=== PATIENT | male | born 1980 | race Caucasian/White ===

== ENCOUNTER 2017-09-09 16:57 | Inpatient (IN) | payer MEDICAID ==
[2017-09-09] MEDS ORDERED: NS 0.9% 1000 ML* 1,000 ML IV ONE (19:53)
[2017-09-09] MEDS ORDERED: Zosyn per Pharmacy* NOTE FOLLOW UP SCH (20:00)
[2017-09-09] MEDS ORDERED: Vancomycin per Pharmacy* NOTE FOLLOW UP PRN (20:20)
[2017-09-09] MEDS ORDERED: Piperacillin/Tazobac ADVAN(*) 3.375 GM in NS 0.9% 100 ML* 100 ML IVPB ONE (20:30)
--- NOTE | 2017-09-09 20:53 | RAD ---
INDICATION: Right ankle infection COMPARISON: None. TECHNIQUE: 3 views of the right ankle and 2 views of the right lower leg were obtained. FINDINGS: There is induration of the subcutaneous tissue overlying the lower leg. Along the posterior aspect of the distal right lower leg there is a 1 cm low-density defect possibly representing a wound. The bones are normal alignment. Joint spaces appear maintained. No fracture is seen. IMPRESSION: SOFT TISSUE FINDINGS DESCRIBED ABOVE. THE UNDERLYING BONES ARE NORMAL. If the patient's symptoms persist, follow-up imaging is recommended.
[2017-09-09] MEDS ORDERED: Vancomycin(*) 1,000 MG in NS 0.9% 250 ML* 250 ML IVPB ONE (21:00)
--- NOTE | 2017-09-09 22:21 | CONS ---
CONSULTATION REPORT: DATE OF CONSULT: 09/09/17 CHIEF COMPLAINT: Right lower leg infection and wound. HISTORY OF PRESENT ILLNESS: Too is 37. He uses IV heroin and methamphetamines. He has a history of multiple abscesses secondary to his IV drug use. He will frequently drain the abscesses himself, do soaks and start antibiotics and these resolve. He had a similar type abscess on the medial aspect of his right lower leg. He did this. Unfortunately, it has gotten into a very large necrotic wound just medial to his Achilles tendon. He today finally decided it was becoming too much for him and he went to [facility] Emergency Room and was transferred over to our hospital for orthopedic care. He denies fevers, chills, or systemic symptoms. He has been taking some Bactrim that he had left over from a prior neck abscess. PAST MEDICAL HISTORY: Significant for IV drug use, multiple infections requiring antibiotics and drainage. PAST SURGICAL HISTORY: Multiple I and D's. MEDICATIONS: He denies any home medications. He recently completed taking some Bactrim that he had left over from a prior infection. ALLERGIES: PENICILLIN. FAMILY HISTORY: Noncontributory. SOCIAL HISTORY: Drug use as mentioned above. Otherwise, he lives independently. REVIEW OF SYSTEMS: A full review of systems was conducted and is negative except for that mentioned above. This included 14 systems. PHYSICAL EXAM: Awake and alert. Cardiac: Regular. Lungs: Clear. Skin: There is a large necrotic wound on the posteromedial aspect of the right lower leg and medial to the Achilles tendon. Musculoskeletal: He is able to flex and extend the ankle and toes. Foot is warm and well perfused. There is a large necrotic wound with some drainage on that posteromedial lower leg. IMAGING: X-rays of the right ankle and lower leg were ordered and reviewed by me. There are some soft tissue abnormalities in the area of the infection, but otherwise no bony abnormalities were seen. IMPRESSION: Right lower leg wound secondary to abscess due to IV drug use the he lanced himself and has now gone on to a large necrotic wound. There is still some infection. PLAN: This is going to require debridement and likely flap coverage. Integra may be an option. He understands this. We talked about risks and benefits. He understands he is going to need to see another surgeon who performs soft tissue coverage procedures. We will plan to do an irrigation and debridement tomorrow and wound VAC coverage. [id number]/[facility] #: [id number] [place]
--- NOTE | 2017-09-09 23:03 | PN ---
Hospitalist Progress Note Date of Service: 09/09/17 CENTRAL LINE NOTE HOSPITALIST PROCEDURE NOTE: CENTRAL LINE Indication present for central line: multiple failed peripheral line attempts / no PICC service / need for multiple IV agents, phlebotomy Discussed with patient, who agreed and consented based on risks & benefits explained. Labs reviewed (no coagulopathy noted). Materials collected and room set up Patient positioned and target site sterilized in the usual fashion with shoulders back and head down (reverse Trendelenburg position) I note patient EXQUISITELY sensitive and copious extra lidocaine used to no great effect. Completed physician-led time out reviewing patient name, procedure, indications , laterality, goals, etc. Site anesthetized with 1% lidocaine in usual fashion Larger finder needle delivered deeper lidocaine but did not get drawback (flash ) from L subclavian vein (characteristic deep red / venous color noted) Position aborted and Stat CXR ordered to r/o pneumothorax and confirm proper line placement. No complications noted at the time of this note.
--- NOTE | 2017-09-10 01:22 | HP ---
CC: Gagan Smart MD * HISTORY AND PHYSICAL: DATE OF ADMISSION: 09/09/17 TIME OF EVALUATION: 8 p.m. PRIMARY CARE PROVIDER: Gagan Smart MD, family practice in [facility]. CHIEF COMPLAINT: Transferred from [facility] ER for left leg abscess. HISTORY OF PRESENT ILLNESS: Mr. Nixon is a 37-year-old man with a medical history primarily significant for IV injection drug use primarily heroin and methamphetamines. He has a history of skin infections secondary to his injection. He self-treats abscesses and even does self incision and drainages. The patient was injecting heroin and methamphetamine into the posterior aspect of his right lower leg right below his calf muscle. The patient was noticing the wound became very large and necrotic just above his Achilles tendon and the patient went to [place] Emergency Room and he was transferred for orthopedic care to [facility] and the patient does not have systemic symptoms. The patient does have very poor IV access although they were able to get transient access and accomplish an injection of ceftriaxone and clindamycin. He has stated PENICILLIN allergy, although he does not know of any history of PENICILLIN reaction and thinks that might be artifactual. The patient was seen by Dr. Elfego Pedraza of Orthopedic Surgery already and Dr. Pedraza feels he needs debridement and likely a wound VAC, but will ultimately need a flap for full healing. This would require a plastic surgery. The plan at this point is for an irrigation and debridement and wound VAC coverage and then to be transferred for a flap procedure. PAST MEDICAL HISTORY: 1. IV drug use. 2. Multiple infections related to the IV drug use and multiple skin infections with incision and drainages. OUTPATIENT MEDICATIONS: None. ALLERGIES: PENICILLIN - unknown reaction. FAMILY HISTORY: Unremarkable. SOCIAL HISTORY: The patient is unemployed. He lives independently. He drinks alcohol, but never in excess. His surrogate decision maker is his mother and her information is on file. The patient is a full code. REVIEW OF SYSTEMS: A review of systems was done along 14 points. This was largely negative except for the pertinent positives as mentioned above in the HPI and past medical history. PHYSICAL EXAMINATION GENERAL APPEARANCE: Young-appearing man, appears stated age, in no apparent distress. VITAL SIGNS: Temperature 98.6 Fahrenheit, pulse 80, respirations 12 and regular , oxygen saturation 99% on room air, blood pressure 100/70. HEENT: Oropharynx clear. Mucous membranes are moist. LUNGS: Clear anteriorly and posterior. No increased work of breathing appreciated. HEART: No murmurs appreciated. ABDOMEN: Soft, nontender. NEUROLOGIC: Nontender. Moves all extremities equally. Normal sensory and motor function. SKIN: Dry and intact. He has got multiple tattoos. He has multiple areas of injection, scarring, and very poor vascular access. At the posterior aspect of his right leg, he has got a large foul smelling, necrotic wound several centimeters in diameter with obvious tendon exposed and purulence. PSYCHIATRY: Normal affect, no acute anxiety or depression. ADMISSION DATA: From [place], he did not have an elevated white blood cell count. He had no chemistries to review. IMAGING: X-rays of the right ankle and lower leg were ordered and only shows soft tissue abnormalities but no bony involvement to suggest osteomyelitis. Blood cultures were ordered, but I am not sure they have been collected and the patient is in extremely hard phlebotomy stick. IMPRESSION: Mr. Nixon is a 37-year-old gentleman with intravenous drug use specifically heroin and methamphetamine, now with a soft tissue infection that is necrosed to include lower levels of fat and muscle, but no bony involvement at this point. He needs surgical debridement and wound VAC placement and ultimately a flap procedure. I have requested vancomycin and piperacillin for a broader coverage. I think the PENICILLIN allergy is artifactual and likely unimportant. The patient will also benefit from IV fluids if we can obtain access. I have made separate for subclavian access and this failed secondary to the patient's extreme uncooperativeness with the procedure and the risk and benefit was not in favor of proceeding any more aggressively. Further decisions will be based on his clinical progress. TIME SPENT: Total time taken to admit Mr. Nixon was 50 minutes, greater than half the time was spent going over the history and physical. [id number]/[facility] #: [id number] [facility]
[2017-09-10 06:31] LABS: EGFR Non-African American 132.7 (>60)
[2017-09-10 06:32] LABS: Hematocrit 35 % (42-52); Hemoglobin 11.8 g/dl (14.0-18.0); Mean Corpuscular HGB Conc 33 g/dl (31-36); Mean Corpuscular Hemoglobin 28 pg (27-31); Mean Corpuscular Volume 84 fL (80-94); Red Blood Count 4.19 10^6/ul (4.0-5.4); Red Cell Distribution Width 15 % (10.5-15)
[2017-09-10 06:59] LABS: White Blood Count 8.7 10^3/ul (3.5-10.8)
[2017-09-10 07:03] LABS: ABS Lymphocytes 2.1 10^3/ul (1.0-4.8); ABS Neutrophils 5.2 10^3/ul (1.5-7.7); Monocytes % 13 % (0-13)
[2017-09-10 07:04] LABS: ABS Basophils 0.1 10^3/ul (0-0.2); ABS Eosinophils 0.2 10^3/ul (0-0.6); ABS Monocytes 1.1 10^3/ul (0-0.8); ABS Nucleated RBC 0 10^3/ul
--- NOTE | 2017-09-10 07:26 | PN ---
Progress Note - Progress Note Date of Service: 09/10/17 SOAP: Subjective: patient resting comfortably with no complaints of pain Objective: Vital Signs Temp Pulse Resp BP Pulse Ox 97.7 F 87 16 118/59 97 09/10/17 03:27 09/10/17 03:27 09/10/17 03:27 09/10/17 03:27 09/10/17 03:27 Laboratory Last Values WBC 8.7 10^3/ul (3.5-10.8) 09/10/17 05:29 RBC 4.19 10^6/ul (4.0-5.4) 09/10/17 05:29 Hgb 11.8 g/dl (14.0-18.0) L 09/10/17 05:29 Hct 35 % (42-52) L 09/10/17 05:29 MCV 84 fL (80-94) 09/10/17 05:29 MCH 28 pg (27-31) 09/10/17 05:29 MCHC 33 g/dl (31-36) 09/10/17 05:29 RDW 15 % (10.5-15) 09/10/17 05:29 Plt Count TNP 09/10/17 05:29 Absolute Neuts (auto) 5.2 10^3/ul (1.5-7.7) 09/10/17 05:29 Absolute Lymphs (auto) 2.1 10^3/ul (1.0-4.8) 09/10/17 05:29 Absolute Monos (auto) 1.1 10^3/ul (0-0.8) H 09/10/17 05:29 Absolute Eos (auto) 0.2 10^3/ul (0-0.6) 09/10/17 05:29 Absolute Basos (auto) 0.1 10^3/ul (0-0.2) 09/10/17 05:29 Absolute Nucleated RBC 0 10^3/ul 09/10/17 05:29 Neutrophils % 60 % (38-83) 09/10/17 05:29 Lymphocytes % 23 % (25-47) L 09/10/17 05:29 Reactive Lymphs % 1 % (0-6) 09/10/17 05:29 Monocytes % 13 % (0-13) 09/10/17 05:29 Eosinophils % 2 % (0-6) 09/10/17 05:29 Basophils % 1 % (0-2) 09/10/17 05:29 Normal RBC Morphology Normal (Normal) 09/10/17 05:29 Sodium 135 mmol/L (133-145) 09/10/17 05:29 Potassium 4.4 mmol/L (3.5-5.0) 09/10/17 05:29 Chloride 101 mmol/L (101-111) 09/10/17 05:29 Carbon Dioxide 27 mmol/L (22-32) 09/10/17 05:29 Anion Gap 7 mmol/L (2-11) 09/10/17 05:29 BUN 13 mg/dL (6-24) 09/10/17 05:29 Creatinine 0.68 mg/dL (0.67-1.17) 09/10/17 05:29 Est GFR ( Amer) 170.7 (>60) 09/10/17 05:29 Est GFR (Non-Af Amer) 132.7 (>60) 09/10/17 05:29 BUN/Creatinine Ratio 19.1 (8-20) 09/10/17 05:29 Glucose 93 mg/dL (70-100) 09/10/17 05:29 Calcium 9.0 mg/dL (8.6-10.3) 09/10/17 05:29 PE: 2+DP pulses, intact sensation over toes, able to moves toes, full ROM right ankle, 5/5 LE strengths wound: dressing intact and clean Assessment: 37 yo male with RLE wound and infection Plan: 1) NPO 2) OR this am for I&D with wound vac placement 3) will need to be transferred to facility for skin flap procedure for wound coverage once stable
--- NOTE | 2017-09-10 09:28 | RAD ---
INDICATION: Status post left subclavian catheter placement attempt COMPARISON: None. TECHNIQUE: Single AP portable view of the chest was obtained. FINDINGS: Image quality is compromised due to the relative inferiority of a portable chest x-ray. The heart and mediastinum exhibit normal size and contour. The lungs are grossly clear. There is no pneumothorax. Visualized bones are normal for the patient's age. IMPRESSION: No pneumothorax. Normal portable AP chest x-ray.
[2017-09-10] MEDS ORDERED: Buffered Lidocaine 0.9% SYRIN* 5 ML/SYR SYRINGE ONE (09:55)
[2017-09-10] MEDS ORDERED: Midazolam* 1 MG/ML 2 ML VIAL (2 MG) ONE (11:32)
[2017-09-10] MEDS ORDERED: Propofol* 10 MG/ML 20 ML BTL IV PUSH ONE (12:19)
[2017-09-10] MEDS ORDERED: Ketorolac INJ* 30 MG/ML 1 ML VIAL ONE (12:19)
[2017-09-10] MEDS ORDERED: Dexamethasone IV* 4 MG/ML 1 ML (4 MG) ONE (12:19)
[2017-09-10] MEDS ORDERED: Ondansetron INJ* 2 MG/ML VIAL ONE (12:39)
[2017-09-10] MEDS ORDERED: Acetaminophen IV 1GM/100ML * 1,000 MG/100 ML VIAL IVPB ONE (12:53)
[2017-09-10] MEDS ORDERED: Acetaminophen IV 1GM/100ML * 100 ML ONE (13:05)
[2017-09-10] MEDS ORDERED: HYDROmorphone INJ* 1 MG/ML CARPUJECT SYRINGE IV PRN (13:16)
[2017-09-10] MEDS ORDERED: HYDROmorphone INJ* 1 MG/ML CARPUJECT SYRINGE ONE (13:18)
[2017-09-10] MEDS ORDERED: Vancomycin(*) 1,000 MG in NS 0.9% 250 ML* 250 ML IVPB ONE (14:00)
[2017-09-10] MEDS ORDERED: ZOSYN 3.375 GM Q8H per EXTENDED INFUSION IVPB SCH ×2 (16:30)
--- NOTE | 2017-09-10 17:15 | PN ---
Subjective Date of Service: 09/10/17 Interval History: Patient seen and examined at bedside. Denies fever, chills, shortness of breath , chest discomfort, N/V/D. Pain is controlled. Family History: Unchanged from Admission Social History: Unchanged from Admission Past Medical History: Unchanged from Admission Objective Active Medications: Acetaminophen (Tylenol Tab*) 650 mg PO Q4H PRN Reason: FEVER/PAIN Heparin Sodium (Porcine) (Heparin Flush Picc/Ml/Cvc(*)) 1 - 3 ml FLUSH 0600, 1800 [facility] Piperacillin Sod/Tazobactam (Sod 3.375 gm/ Sodium Chloride) 100 mls @ 25 mls/ hr IVPB Q8H [facility] Pharmacy Consult (Zosyn Per Pharmacy*) 1 note FOLLOW UP .ZOSYN PER PHARMACY [facility] Pharmacy Consult (Vancomycin Per Pharmacy*) 1 note FOLLOW UP . PRN Vital Signs - 8 hr 09/10/17 09/10/17 09/10/17 13:01 13:05 13:10 Temperature 97.0 F Pulse Rate 91 77 70 Respiratory 16 18 16 Rate Blood Pressure 131/91 149/99 129/92 (mmHg) O2 Sat by Pulse 100 100 100 Oximetry 09/10/17 09/10/17 09/10/17 13:15 13:19 13:20 Temperature Pulse Rate 67 62 Respiratory 16 18 16 Rate Blood Pressure 128/83 128/81 (mmHg) O2 Sat by Pulse 100 100 Oximetry 09/10/17 09/10/17 09/10/17 13:30 14:13 14:20 Temperature 97.4 F 97.4 F Pulse Rate 61 52 52 Respiratory 16 18 18 Rate Blood Pressure 130/91 118/69 118/69 (mmHg) O2 Sat by Pulse 100 100 100 Oximetry 09/10/17 15:33 Temperature 97.8 F Pulse Rate 56 Respiratory 18 Rate Blood Pressure 109/61 (mmHg) O2 Sat by Pulse 99 Oximetry Oxygen Devices in Use Now: None Appearance: NAD, laying in bed Ears/Nose/Mouth/Throat: Mucous Membranes Moist Respiratory: Symmetrical Chest Expansion and Respiratory Effort, Clear to Auscultation Cardiovascular: NL Sounds; No Murmurs; No JVD, RRR Abdominal: NL Sounds; No Tenderness; No Distention Skin: - - Wound vac in place to right LE Neurological: Alert and Oriented x 3, NL Muscle Strength and Tone Lines/Tubes/Other Access: Clean, Dry and Intact PICC Line - site benign Nutrition: Taking PO's Result Diagrams: 09/10/17 05:29 09/10/17 05:29 Microbiology and Other Data: Microbiology 09/10/17 12:19 Skin and Soft Tissue MRSA/MSSA (PCR - Final Wound - Right Leg Mrsa Negative S.aureus Negative 09/10/17 12:19 Wound Gram Stain - Final Tissue - Right Leg Skin and Soft Tissue MRSA/MSSA (PCR - Final Mrsa Negative S.aureus Negative 09/10/17 12:19 Gram Stain - Final Leg Right Assess/Plan/Problems-Billing Assessment: Mr. Nixon is a 37 yo male with PMH significant for IV drug use who initially presented to [facility] with a soft tissue infection and associated necrosis to the right LE and is now status post I+D and wound vac placement. - Patient Problems (1) Wound of right lower extremity Code(s): S81.801A - UNSPECIFIED OPEN WOUND, RIGHT LOWER LEG, INITIAL ENCOUNTER SNOMED Code(s): 074379122 Comment: - with associated necrotic wound and abscess - Ortho consult, input appreciated - S/P surgical debridment and wound vac placement - Will need skin graft - PICC line placed today - Continue Vanco and Zosyn (2) IV drug abuse Code(s): F19.10 - OTHER PSYCHOACTIVE SUBSTANCE ABUSE, UNCOMPLICATED SNOMED Code(s): 969324046 Comment: - Social work consult, pending (3) DVT prophylaxis Code(s): RMM0854 - SNOMED Code(s): 884455689 Comment: - Encourage ambulation (4) Full code status Code(s): Z78.9 - OTHER SPECIFIED HEALTH STATUS SNOMED Code(s): 601144904 Status and Disposition: Inpatient. Plan for transfer to another facility for skin grafting once medically stable and a bed is available.
[2017-09-10] MEDS ORDERED: Vancomycin(*) 1,000 MG in NS 0.9% 250 ML* 250 ML IVPB SCH ×2 (21:00→22:35)
[2017-09-11] MEDS: Piperacillin/Tazobac ADVAN(*) 3.375 GM in NS 0.9% 100 ML* 100 ML IVPB SCH ×3 (01:57→18:39)
[2017-09-11] MEDS: Vancomycin(*) 1,000 MG in NS 0.9% 250 ML* 250 ML IVPB SCH ×4 (06:44→23:03)
--- NOTE | 2017-09-11 08:39 | PN ---
Progress Note - Progress Note Date of Service: 09/11/17 SOAP: Subjective: resting comfortably with improved right lower leg pain Objective: Vital Signs Temp Pulse Resp BP Pulse Ox 98.2 F 65 16 112/53 97 09/11/17 07:55 09/11/17 07:55 09/11/17 07:55 09/11/17 07:55 09/11/17 07:55 Laboratory Last Values WBC 8.7 10^3/ul (3.5-10.8) 09/10/17 05:29 RBC 4.19 10^6/ul (4.0-5.4) 09/10/17 05:29 Hgb 11.8 g/dl (14.0-18.0) L 09/10/17 05:29 Hct 35 % (42-52) L 09/10/17 05:29 MCV 84 fL (80-94) 09/10/17 05:29 MCH 28 pg (27-31) 09/10/17 05:29 MCHC 33 g/dl (31-36) 09/10/17 05:29 RDW 15 % (10.5-15) 09/10/17 05:29 Plt Count TNP 09/10/17 05:29 Absolute Neuts (auto) 5.2 10^3/ul (1.5-7.7) 09/10/17 05:29 Absolute Lymphs (auto) 2.1 10^3/ul (1.0-4.8) 09/10/17 05:29 Absolute Monos (auto) 1.1 10^3/ul (0-0.8) H 09/10/17 05:29 Absolute Eos (auto) 0.2 10^3/ul (0-0.6) 09/10/17 05:29 Absolute Basos (auto) 0.1 10^3/ul (0-0.2) 09/10/17 05:29 Absolute Nucleated RBC 0 10^3/ul 09/10/17 05:29 Neutrophils % 60 % (38-83) 09/10/17 05:29 Lymphocytes % 23 % (25-47) L 09/10/17 05:29 Reactive Lymphs % 1 % (0-6) 09/10/17 05:29 Monocytes % 13 % (0-13) 09/10/17 05:29 Eosinophils % 2 % (0-6) 09/10/17 05:29 Basophils % 1 % (0-2) 09/10/17 05:29 Normal RBC Morphology Normal (Normal) 09/10/17 05:29 Sodium 135 mmol/L (133-145) 09/10/17 05:29 Potassium 4.4 mmol/L (3.5-5.0) 09/10/17 05:29 Chloride 101 mmol/L (101-111) 09/10/17 05:29 Carbon Dioxide 27 mmol/L (22-32) 09/10/17 05:29 Anion Gap 7 mmol/L (2-11) 09/10/17 05:29 BUN 13 mg/dL (6-24) 09/10/17 05:29 Creatinine 0.68 mg/dL (0.67-1.17) 09/10/17 05:29 Est GFR ( Amer) 170.7 (>60) 09/10/17 05:29 Est GFR (Non-Af Amer) 132.7 (>60) 09/10/17 05:29 BUN/Creatinine Ratio 19.1 (8-20) 09/10/17 05:29 Glucose 93 mg/dL (70-100) 09/10/17 05:29 Calcium 9.0 mg/dL (8.6-10.3) 09/10/17 05:29 Vancomycin Trough 8.9 mcg/mL 09/11/17 06:30 incision: wound vac placed right lower leg intact with good suction PE: NVI Assessment: s/p I&D right lower leg with wound vac placement (09/10) Plan: 1) continue IV Abx 2) wound vac will be changed tomorrow 3) will continue to monitor closely, may require repeat I&D later this week
--- NOTE | 2017-09-11 08:45 | PN ---
Progress Note - Progress Note Date of Service: 09/11/17 Note: Stable. Wound did not go as deep as I thought it might. Continue wound vac today. Reassess with wound vac change tomorrow or Monday.
--- NOTE | 2017-09-11 10:06 | PN ---
Subjective Date of Service: 09/11/17 Interval History: Pt is feeling ok. He denies any pain in his R ankle. No CP, SOB, abdominal pain or diarrhea. Family History: Unchanged from Admission Social History: Unchanged from Admission Past Medical History: Unchanged from Admission Objective Active Medications: Acetaminophen (Tylenol Tab*) 650 mg PO Q4H PRN PRN Reason: FEVER/PAIN Heparin Sodium (Porcine) (Heparin Flush Picc/Ml/Cvc(*)) 1 - 3 ml FLUSH 0600, 1800 [facility] PRN Reason: Protocol Last Admin: 09/11/17 06:49 Dose: Not Given Piperacillin Sod/Tazobactam (Sod 3.375 gm/ Sodium Chloride) 100 mls @ 25 mls/ hr IVPB Q8H [facility] Last Admin: 09/11/17 09:56 Dose: 25 mls/hr Vancomycin HCl 1,000 mg/ (Sodium Chloride) 250 mls @ 166.667 mls/hr IVPB Q8H [facility] Last Admin: 09/11/17 06:44 Dose: 166.667 mls/hr Pharmacy Consult (Zosyn Per Pharmacy*) 1 note FOLLOW UP .ZOSYN PER PHARMACY [facility] Pharmacy Consult (Vancomycin Per Pharmacy*) 1 note FOLLOW UP . PRN PRN Reason: PER PROTOCOL Pharmacy Profile Note (Vancomycin Trough Check) 1 note FOLLOW UP 1400 ONE Stop: 09/11/17 14:01 Vital Signs - 8 hr 09/11/17 09/11/17 03:41 07:55 Temperature 98.1 F 98.2 F Pulse Rate 70 65 Respiratory 16 16 Rate Blood Pressure 116/60 112/53 (mmHg) O2 Sat by Pulse 98 97 Oximetry Oxygen Devices in Use Now: None Appearance: Young male lying in bed, NAD Eyes: No Scleral Icterus Ears/Nose/Mouth/Throat: Mucous Membranes Moist Respiratory: Symmetrical Chest Expansion and Respiratory Effort, Clear to Auscultation Cardiovascular: NL Sounds; No Murmurs; No JVD, RRR, No Edema Abdominal: NL Sounds; No Tenderness; No Distention Extremities: No Clubbing, Cyanosis Skin: No Nodules or Sclerosis, - - R medial/posterior ankle with wound vac in place, no significant erythema of the lower leg Neurological: Alert and Oriented x 3 Result Diagrams: 09/10/17 05:29 09/10/17 05:29 Microbiology and Other Data: Microbiology 09/10/17 12:19 Skin and Soft Tissue MRSA/MSSA (PCR - Final Wound - Right Leg Mrsa Negative S.aureus Negative 09/10/17 12:19 Wound Gram Stain - Final Tissue - Right Leg Skin and Soft Tissue MRSA/MSSA (PCR - Final Mrsa Negative S.aureus Negative 09/10/17 12:19 Gram Stain - Final Leg Right Assess/Plan/Problems-Billing Mr. Nixon is a 37 yo male with PMH significant for IV drug use who initially presented to [facility] with a soft tissue infection and associated necrosis to the right LE and is now status post I+D and wound vac placement. - Patient Problems (1) Wound of right lower extremity Current Visit: Yes Status: Acute Code(s): S81.801A - UNSPECIFIED OPEN WOUND , RIGHT LOWER LEG, INITIAL ENCOUNTER SNOMED Code(s): 165678438 Comment: The patient is s/p I&D R ankle wound yesterday. Continue wound vac with likely dressing change in 1-2 days. Will continue vanco and zosyn for now but await wound cultures-looks like gram positive cocci-not staph. Will ask for ID consult. ? need for skin graft once the infection clears. (2) IV drug abuse Current Visit: Yes Status: Acute Code(s): F19.10 - OTHER PSYCHOACTIVE SUBSTANCE ABUSE, UNCOMPLICATED SNOMED Code(s): 284853110 Comment: Social work consult (3) DVT prophylaxis Current Visit: Yes Status: Acute Code(s): WNS2126 - SNOMED Code(s): 541991306 Comment: SQ heparin as pt not walking much with wound vac in place (4) Full code status Current Visit: Yes Status: Acute Code(s): Z78.9 - OTHER SPECIFIED HEALTH STATUS SNOMED Code(s): 381429932 Status and Disposition: .
--- NOTE | 2017-09-11 10:09 | OP ---
OPERATIVE REPORT: DATE OF OPERATION: 09/10/17 DATE OF : 84 SURGEON: Elfego Pedraza MD DOT NET DEVELOPER: NANCY Dugan An assistant professor of archaeology was needed for the procedure to aid in positioning of the leg and placement of the wound VAC. ANESTHESIOLOGIST: Dr. Guthrie. ANESTHESIA: General. PRE-OP DIAGNOSIS: Right posteromedial leg wound secondary to IV drug use abscess. POST-OP DIAGNOSIS: Right posteromedial leg wound secondary to IV drug use abscess. PROCEDURE: 1. Irrigation and debridement of right posteromedial leg wound with preparation of wound for subsequ ent wound VAC placement and potentially skin graft with flap coverage at a later date. 2. Placement of wound VAC, right lower leg wound. The wound measured 7 x 8 cm. ESTIMATED BLOOD LOSS: 5 mL. COMPLICATIONS: None. FINDINGS: After debriding the skin and subcutaneous tissue, the paratenon over the Achilles tendon w as still intact as was the fascia overlying the neurovascular bundle posteromedially. DESCRIPTION OF PROCEDURE: Too was seen and taken back to the operating room. The leg was prepped a nd draped in the usual fashion. A time-out was performed. He was positioned supine with a bump and t he use of the leg foam to elevate the leg. I began by gently exsanguinating the leg with the Esmarch and the tourniquet was inflated to 300 mmHg . I took a 2 mm skin margin around the circumference of the wound. That margin plus all the central necrotic skin was passed off. A tissue sample was taken for tissue cultures. Aerobic and anaerobic swab cultures were additionally taken. I then brought in the curette and I debrided out all of the nonviable, loose and infected subcutaneous tissue. I used the rongeur as well to do the debridement. Once everything was completely clean and all the tissue that remained appeared healthy and viable, we irrigated out the wound copiously. We used 6 to 8 L of fluid. I then let down the tourniquet. H emostasis was obtained with the Bovie. The leg was reexsanguinated and the tourniquet inflated. I t jaqui measured and trimmed my wound VAC to the appropriate size. The sponge was placed. It was secured in place with the plastic strips and the remainder of the wound VAC was placed in usual fashion. Th e wound VAC was initiated at negative 125 mmHg on continuous therapy. Tourniquet was deflated. He w as then taken to the recovery room in stable condition. [id number]/[facility] #: [id number]
[2017-09-11] MEDS ORDERED: Vancomycin Trough Check NOTE FOLLOW UP ONE (14:00)
--- NOTE | 2017-09-11 14:14 | PN ---
Progress Note - Progress Note Date of Service: 09/11/17 SOAP: Subjective: pain improved POD1 right ankle soft tissue I&D and vac [] Objective: Temp Pulse Resp BP Pulse Ox 98.5 F 75 16 126/52 97 09/11/17 11:29 09/11/17 11:29 09/11/17 11:29 09/11/17 11:29 09/11/17 11:29 vac with good suction minimal erythema CRP 10 WBC 8.7 Assessment: doing well POD1 I&D and vac. Discussed plan for vac and letting heal by secondary intent. Also discussed that if this fails would need flap coverage by plastics. [] Plan: NWB RLE vac at 125 abx per ID vac change tomorrow or wed []
[2017-09-11] MEDS: Buprenorphine/Naloxone 8-2 MG SL TAB* 1 TAB PO SCH (17:19)
[2017-09-11] MEDS: Heparin VIAL(*) 5000 UNITS/ML VIAL (FIVE THOUSAND) SUBCUT SCH (22:05)
[2017-09-12] MEDS: Piperacillin/Tazobac ADVAN(*) 3.375 GM in NS 0.9% 100 ML* 100 ML IVPB SCH ×3 (02:06→19:42)
[2017-09-12] MEDS: Vancomycin(*) 1,000 MG in NS 0.9% 250 ML* 250 ML IVPB SCH ×2 (06:05→15:19)
[2017-09-12] MEDS: Heparin VIAL(*) 5000 UNITS/ML VIAL (FIVE THOUSAND) SUBCUT SCH ×2 (10:21→20:33)
[2017-09-12] MEDS: Buprenorphine/Naloxone 8-2 MG SL TAB* 1 TAB PO SCH (12:38)
[2017-09-12] MEDS ORDERED: Mouth Piece, Nicotine* 1 EACH CARTRIDGE INH ONE (13:40)
[2017-09-12] MEDS ORDERED: Nicotine Inhaler* 10 MG AMP ONE ×2 (13:47→19:54)
[2017-09-12] MEDS ORDERED: Mouth Piece, Nicotine* 1 EACH CARTRIDGE ONE ×2 (13:47→19:53)
--- NOTE | 2017-09-12 14:30 | PN ---
Subjective Date of Service: 09/12/17 Interval History: Patient seen and examined at bedside. Denies fever/chills, CP, SOB. Denies right ankle/leg/foot pain. He is notably agitated and states he is hungry and bored. He is due for OR procedure this afternoon. No other acute complaints other than observed itching of face and upper extremities. Patient does endorse pruritis of these areas when asked. Family History: Unchanged from Admission Social History: Unchanged from Admission Past Medical History: Unchanged from Admission Objective Active Medications: Acetaminophen (Tylenol Tab*) 650 mg PO Q4H PRN PRN Reason: FEVER/PAIN Buprenorphine/Naloxone (Suboxone 8-2 Mg Sl Tab*) 1 tab.sl PO DAILY [facility] Last Admin: 09/12/17 12:38 Dose: 1 tab.sl Heparin Sodium (Porcine) (Heparin Flush Picc/Ml/Cvc(*)) 1 - 3 ml FLUSH 0600, 1800 [facility] PRN Reason: Protocol Last Admin: 09/12/17 06:04 Dose: 1 ml Heparin Sodium (Porcine) (Heparin Vial(*)) 5,000 units SUBCUT Q12HR [facility] Last Admin: 09/12/17 10:21 Dose: Not Given Piperacillin Sod/Tazobactam (Sod 3.375 gm/ Sodium Chloride) 100 mls @ 25 mls/ hr IVPB Q8H [facility] Last Admin: 09/12/17 10:19 Dose: 25 mls/hr Vancomycin HCl 1,000 mg/ (Sodium Chloride) 250 mls @ 166.667 mls/hr IVPB Q8H [facility] Last Admin: 09/12/17 06:05 Dose: 166.667 mls/hr Pharmacy Consult (Zosyn Per Pharmacy*) 1 note FOLLOW UP .ZOSYN PER PHARMACY [facility] Pharmacy Consult (Vancomycin Per Pharmacy*) 1 note FOLLOW UP . PRN PRN Reason: PER PROTOCOL Vital Signs - 8 hr 09/12/17 09/12/17 09/12/17 07:45 08:00 11:19 Temperature 98.2 F 98.1 F Pulse Rate 56 62 Respiratory 16 16 18 Rate Blood Pressure 105/61 109/63 (mmHg) O2 Sat by Pulse 97 97 97 Oximetry 09/12/17 12:38 Temperature Pulse Rate Respiratory 16 Rate Blood Pressure (mmHg) O2 Sat by Pulse Oximetry Oxygen Devices in Use Now: None Appearance: Young male, lying in bed, NAD Eyes: No Scleral Icterus Ears/Nose/Mouth/Throat: Clear Oropharnyx, Mucous Membranes Moist Neck: NL Appearance and Movements; NL JVP Respiratory: Symmetrical Chest Expansion and Respiratory Effort, Clear to Auscultation Cardiovascular: NL Sounds; No Murmurs; No JVD, RRR Abdominal: NL Sounds; No Tenderness; No Distention Extremities: No Edema, - - right posterior ankle with wound vac in place - serosanguinous drainage noted in collection container; no significant surrounding erythema or edema noted Neurological: Alert and Oriented x 3, NL Muscle Strength and Tone Lines/Tubes/Other Access: Clean, Dry and Intact Peripheral IV Result Diagrams: 09/10/17 05:29 09/10/17 05:29 Microbiology and Other Data: Microbiology 09/10/17 12:19 Skin and Soft Tissue MRSA/MSSA (PCR - Final Wound - Right Leg Mrsa Negative S.aureus Negative 09/10/17 12:19 Wound Gram Stain - Final Tissue - Right Leg Skin and Soft Tissue MRSA/MSSA (PCR - Final Mrsa Negative S.aureus Negative 09/10/17 12:19 Gram Stain - Final Leg Right Assess/Plan/Problems-Billing Mr. Nixon is a 37 yo male with PMH significant for IV drug use who initially presented to [facility] with a soft tissue infection and associated necrosis to the right LE and is now status post I+D and wound vac placement. - Patient Problems (1) Wound of right lower extremity Code(s): S81.801A - UNSPECIFIED OPEN WOUND, RIGHT LOWER LEG, INITIAL ENCOUNTER Comment: The patient is s/p I&D R ankle wound yesterday; plan for surgical re-evaluation this afternoon. Continue wound vac. Will continue vanco and Zosyn for now but await wound cultures-looks like gram positive cocci-not staph. ID consult pending ? need for skin graft once the infection clears. (2) IV drug abuse Code(s): F19.10 - OTHER PSYCHOACTIVE SUBSTANCE ABUSE, UNCOMPLICATED Comment: Social work consult (3) DVT prophylaxis Code(s): EPV0100 - Comment: SQ heparin, as pt not walking much with wound vac in place (4) Full code status Code(s): Z78.9 - OTHER SPECIFIED HEALTH STATUS Status and Disposition: Inpatient admission. Anticipate extended LOS secondary to complicated wound with potential need for flap.
[2017-09-12] MEDS ORDERED: diPHENhydraMINE IV* 50 MG in NS 0.9% 50 ML* 50 ML IVPB PRN (14:36)
[2017-09-12] MEDS ORDERED: diPHENhydraMINE IV* 50 MG/ML 1 ml VIAL (BENADRYL) IV PRN (15:13)
--- NOTE | 2017-09-12 17:02 | PN ---
Progress Note - Progress Note Date of Service: 09/12/17 SOAP: Subjective: []Patient seen at bedside. He feels well and denies RLE pain. No fever, chills, SOB, CP. [] Objective: Vital Signs Temp 98.1 F 09/12/17 11:19 Pulse 62 09/12/17 11:19 Resp 18 09/12/17 15:12 BP 109/63 09/12/17 11:19 Pulse Ox 97 09/12/17 11:19 Intake & Output 09/11/17 09/12/17 09/12/17 18:59 06:59 18:59 Intake Total 1154 2071 270 Output Total 1300 750 550 Balance -146 1321 -280 Intake: IV Fluids 414 271 270 ABX - VANCOMYCIN 294 271 270 ABX - ZOSYN 120 Oral 740 1800 0 Output: Urine 1300 750 550 Other: Estimated Stool Amount Small Laboratory Last Values WBC 8.7 10^3/ul (3.5-10.8) 09/10/17 05:29 RBC 4.19 10^6/ul (4.0-5.4) 09/10/17 05:29 Hgb 11.8 g/dl (14.0-18.0) L 09/10/17 05:29 Hct 35 % (42-52) L 09/10/17 05:29 MCV 84 fL (80-94) 09/10/17 05:29 MCH 28 pg (27-31) 09/10/17 05:29 MCHC 33 g/dl (31-36) 09/10/17 05:29 RDW 15 % (10.5-15) 09/10/17 05:29 Plt Count TNP 09/10/17 05:29 Absolute Neuts (auto) 5.2 10^3/ul (1.5-7.7) 09/10/17 05:29 Absolute Lymphs (auto) 2.1 10^3/ul (1.0-4.8) 09/10/17 05:29 Absolute Monos (auto) 1.1 10^3/ul (0-0.8) H 09/10/17 05:29 Absolute Eos (auto) 0.2 10^3/ul (0-0.6) 09/10/17 05:29 Absolute Basos (auto) 0.1 10^3/ul (0-0.2) 09/10/17 05:29 Absolute Nucleated RBC 0 10^3/ul 09/10/17 05:29 Neutrophils % 60 % (38-83) 09/10/17 05:29 Lymphocytes % 23 % (25-47) L 09/10/17 05:29 Reactive Lymphs % 1 % (0-6) 09/10/17 05:29 Monocytes % 13 % (0-13) 09/10/17 05:29 Eosinophils % 2 % (0-6) 09/10/17 05:29 Basophils % 1 % (0-2) 09/10/17 05:29 Normal RBC Morphology Normal (Normal) 09/10/17 05:29 Sodium 135 mmol/L (133-145) 09/10/17 05:29 Potassium 4.4 mmol/L (3.5-5.0) 09/10/17 05:29 Chloride 101 mmol/L (101-111) 09/10/17 05:29 Carbon Dioxide 27 mmol/L (22-32) 09/10/17 05:29 Anion Gap 7 mmol/L (2-11) 09/10/17 05:29 BUN 13 mg/dL (6-24) 09/10/17 05:29 Creatinine 0.68 mg/dL (0.67-1.17) 09/10/17 05:29 Est GFR ( Amer) 170.7 (>60) 09/10/17 05:29 Est GFR (Non-Af Amer) 132.7 (>60) 09/10/17 05:29 BUN/Creatinine Ratio 19.1 (8-20) 09/10/17 05:29 Glucose 93 mg/dL (70-100) 09/10/17 05:29 Calcium 9.0 mg/dL (8.6-10.3) 09/10/17 05:29 C-Reactive Protein 10.42 mg/L (< 5.00) H 09/10/17 05:29 Vancomycin Trough 12.3 mcg/mL 09/11/17 14:03 General: [place] in bed, well appearing, NAD. Calm and cooperative RLE: Vac in place, good suction.Calf indurated around area of vac, nontender. No palpable cords and minimal erythema. DP pulse 2+ Assessment: []s/p I&D and wound vac placement RLE Plan: abx per ID NWB RLE Return to OR with Dr Myers 09/12/17
[2017-09-12] MEDS ORDERED: fentaNYL* 50 MCG/ML 2 ML VIAL (100 MCG VIAL) ONE (17:05)
[2017-09-12] MEDS ORDERED: Midazolam* 1 MG/ML 2 ML VIAL (2 MG) ONE ×2 (17:05→17:29)
[2017-09-12] MEDS ORDERED: Lidocaine 2% PF * 5 ML VIAL ONE (17:05)
[2017-09-12] MEDS: Hydrocortisone 1% CREAM* 1.5 GM PAK TOPICAL SCH ×2 (17:19→20:37)
[2017-09-12] MEDS ORDERED: Ondansetron INJ* 2 MG/ML VIAL IV PRN (17:35)
[2017-09-12] MEDS ORDERED: Acetaminophen TAB* 325 MG PO PRN (17:35)
[2017-09-12] MEDS: Acetaminophen TAB* 325 MG PO PRN (19:47)
[2017-09-12] MEDS: Moisturizing CREAM* 120 GM JAR TOPICAL SCH (20:37)
[2017-09-13] MEDS: Piperacillin/Tazobac ADVAN(*) 3.375 GM in NS 0.9% 100 ML* 100 ML IVPB SCH ×2 (00:51→16:15)
--- NOTE | 2017-09-13 03:58 | OP ---
DATE OF OPERATION: 09/12/17 - ROOM #340 DATE OF : 84 ATTENDING SURGEON: Elfego Myers MD SUPERINTENDENT POLICE: No legislative assistant. PRE-OP DIAGNOSIS: Abscess, right calf. POST-OP DIAGNOSIS: Abscess, right calf. OPERATIVE PROCEDURE: Irrigation and vacuum dressing change. DESCRIPTION OF PROCEDURE: The patient was taken to the operating room where some propofol was administered. After standard prep and drape, we removed the VAC dressing from the right calf. There was a large full-thickness defect approximately 5 x 6 cm in size. There is an early granulation bed, everything appeared clean and nonerythematous. The new VAC dressing was applied, sealed with an Iodoform and placed at 125 mm suction. The patient tolerated the above well. [id number]/CPS #: [id number] [facility]
[2017-09-13] MEDS: Acetaminophen TAB* 325 MG PO PRN ×3 (06:12→19:32)
[2017-09-13] MEDS: Hydrocortisone 1% CREAM* 1.5 GM PAK TOPICAL SCH ×4 (08:24→20:58)
[2017-09-13] MEDS: Moisturizing CREAM* 120 GM JAR TOPICAL SCH ×2 (08:24→20:59)
[2017-09-13] MEDS: Buprenorphine/Naloxone 8-2 MG SL TAB* 1 TAB PO SCH (08:32)
[2017-09-13] MEDS: Heparin VIAL(*) 5000 UNITS/ML VIAL (FIVE THOUSAND) SUBCUT SCH ×2 (08:33→20:57)
[2017-09-13] MEDS: Nicotine Inhaler* 10 MG AMP INH PRN ×3 (12:24→19:10)
--- NOTE | 2017-09-13 13:13 | PN ---
Subjective Date of Service: 09/13/17 Interval History: Patient seen and examined at bedside. Denies fever/chills, CP, SOB, n/v, pain to RLE. Does endorse some itching under the dressing. Anxious for discharge to home. Discussed that he would likely have an extended stay to ensure proper healing and to ensure that he is NWB; encouraged patient to discuss concerns and questions with ortho surgery team. Family History: Unchanged from Admission Social History: Unchanged from Admission Past Medical History: Unchanged from Admission Objective Active Medications: Acetaminophen (Tylenol Tab*) 650 mg PO Q4H PRN PRN Reason: FEVER/PAIN Last Admin: 09/13/17 12:00 Dose: 650 mg Buprenorphine/Naloxone (Suboxone 8-2 Mg Sl Tab*) 1 tab.sl PO DAILY [facility] Last Admin: 09/13/17 08:32 Dose: 1 tab.sl Diphenhydramine HCl (Benadryl Iv*) 50 mg IV Q6H PRN PRN Reason: PRURITIS Heparin Sodium (Porcine) (Heparin Flush Picc/Ml/Cvc(*)) 1 - 3 ml FLUSH 0600, 1800 [facility] PRN Reason: Protocol Last Admin: 09/13/17 08:32 Dose: 1 ml Heparin Sodium (Porcine) (Heparin Vial(*)) 5,000 units SUBCUT Q12HR [facility] Last Admin: 09/13/17 08:33 Dose: 5,000 units Hydrocortisone (Hydrocortisone 1% Cream*) 1 applic TOPICAL QID [facility] Last Admin: 09/13/17 11:37 Dose: Not Given Piperacillin Sod/Tazobactam (Sod 3.375 gm/ Sodium Chloride) 100 mls @ 25 mls/ hr IVPB 0000,0800,1600 [facility] Multi-Ingredient Ointment (Hydrocerin*) 1 applic TOPICAL BID [facility] Last Admin: 09/13/17 08:24 Dose: Not Given Nicotine (Nicotine Inhaler*) 10 mg INH Q2H PRN PRN Reason: CRAVINGS Last Admin: 09/13/17 12:24 Dose: 10 mg Pharmacy Consult (Zosyn Per Pharmacy*) 1 note FOLLOW UP .ZOSYN PER PHARMACY [facility] Vital Signs - 8 hr 09/13/17 09/13/17 09/13/17 07:27 07:28 08:32 Temperature 97.9 F Pulse Rate 56 Respiratory 18 18 16 Rate Blood Pressure 103/54 (mmHg) O2 Sat by Pulse 99 99 Oximetry 09/13/17 09/13/17 10:39 11:39 Temperature 98.2 F Pulse Rate 70 Respiratory 18 17 Rate Blood Pressure 111/54 (mmHg) O2 Sat by Pulse 95 Oximetry Oxygen Devices in Use Now: None Appearance: Young male, lying in bed, NAD Eyes: No Scleral Icterus Ears/Nose/Mouth/Throat: Clear Oropharnyx, Mucous Membranes Moist Neck: NL Appearance and Movements; NL JVP Respiratory: Symmetrical Chest Expansion and Respiratory Effort, Clear to Auscultation Cardiovascular: NL Sounds; No Murmurs; No JVD, RRR Abdominal: NL Sounds; No Tenderness; No Distention Extremities: - - RLE dressing c/d/i, wound vac with sanguinous drainage Neurological: Alert and Oriented x 3, NL Muscle Strength and Tone Lines/Tubes/Other Access: Clean, Dry and Intact Peripheral IV Nutrition: Taking PO's Result Diagrams: 09/10/17 05:29 09/10/17 05:29 Microbiology and Other Data: Microbiology 09/10/17 12:19 Skin and Soft Tissue MRSA/MSSA (PCR - Final Wound - Right Leg Mrsa Negative S.aureus Negative 09/10/17 12:19 Wound Gram Stain - Final Tissue - Right Leg Skin and Soft Tissue MRSA/MSSA (PCR - Final Mrsa Negative S.aureus Negative 09/10/17 12:19 Gram Stain - Final Leg Right Assess/Plan/Problems-Billing Mr. Nixon is a 37 yo male with PMH significant for IV drug use who initially presented to [facility] with a soft tissue infection and associated necrosis to the right LE and is now status post I+D and wound vac placement. - Patient Problems (1) Wound of right lower extremity Code(s): S81.801A - UNSPECIFIED OPEN WOUND, RIGHT LOWER LEG, INITIAL ENCOUNTER Comment: The patient is s/p I&D R ankle wound; wound vac exchange on 09/12/17 Continue wound vac; patient will likely need more wash-outs of the wound Stop vancomycin, continue Zosyn per ID recommendations. ? need for skin graft once the infection clears. (2) IV drug abuse Code(s): F19.10 - OTHER PSYCHOACTIVE SUBSTANCE ABUSE, UNCOMPLICATED Comment: Social work consult (3) DVT prophylaxis Code(s): [id number] - Comment: SQ heparin, as pt not walking much with wound vac in place (4) Full code status Code(s): Z78.9 - OTHER SPECIFIED HEALTH STATUS Status and Disposition: Inpatient admission. Anticipate extended LOS secondary to complicated wound with potential need for flap.
--- NOTE | 2017-09-13 16:18 | PN ---
Progress Note - Progress Note Date of Service: 09/13/17 SOAP: Subjective: []Patient seen at bedside. He denies RLE but feels anxious to get out of the hospital. No fever, chills, dizziness. Objective: []General: Laying in bed, well appearing, NAD. Calm and cooperative RLE: Vac and dressing in place, good suction. Calf nonerythematous, nontender. Vital Signs Temp 98.3 F 09/13/17 15:39 Pulse 68 09/13/17 15:39 Resp 16 09/13/17 15:39 BP 119/62 09/13/17 15:39 Pulse Ox 96 09/13/17 15:39 Intake & Output 09/12/17 09/13/17 09/13/17 18:59 06:59 18:59 Intake Total 715 550 430 Output Total 550 1050 875 Balance 165 500 -445 Intake: IV Fluids 670 110 ABX - VANCOMYCIN 270 ABX - ZOSYN 110 LR 400 Oral 45 550 320 Output: Urine 550 1050 875 Other: Estimated Stool Amount Small Laboratory Last Values WBC 8.7 10^3/ul (3.5-10.8) 09/10/17 05:29 RBC 4.19 10^6/ul (4.0-5.4) 09/10/17 05:29 Hgb 11.8 g/dl (14.0-18.0) L 09/10/17 05:29 Hct 35 % (42-52) L 09/10/17 05:29 MCV 84 fL (80-94) 09/10/17 05:29 MCH 28 pg (27-31) 09/10/17 05:29 MCHC 33 g/dl (31-36) 09/10/17 05:29 RDW 15 % (10.5-15) 09/10/17 05:29 Plt Count TNP 09/10/17 05:29 Absolute Neuts (auto) 5.2 10^3/ul (1.5-7.7) 09/10/17 05:29 Absolute Lymphs (auto) 2.1 10^3/ul (1.0-4.8) 09/10/17 05:29 Absolute Monos (auto) 1.1 10^3/ul (0-0.8) H 09/10/17 05:29 Absolute Eos (auto) 0.2 10^3/ul (0-0.6) 09/10/17 05:29 Absolute Basos (auto) 0.1 10^3/ul (0-0.2) 09/10/17 05:29 Absolute Nucleated RBC 0 10^3/ul 09/10/17 05:29 Neutrophils % 60 % (38-83) 09/10/17 05:29 Lymphocytes % 23 % (25-47) L 09/10/17 05:29 Reactive Lymphs % 1 % (0-6) 09/10/17 05:29 Monocytes % 13 % (0-13) 09/10/17 05:29 Eosinophils % 2 % (0-6) 09/10/17 05:29 Basophils % 1 % (0-2) 09/10/17 05:29 Normal RBC Morphology Normal (Normal) 09/10/17 05:29 Sodium 135 mmol/L (133-145) 09/10/17 05:29 Potassium 4.4 mmol/L (3.5-5.0) 09/10/17 05:29 Chloride 101 mmol/L (101-111) 09/10/17 05:29 Carbon Dioxide 27 mmol/L (22-32) 09/10/17 05:29 Anion Gap 7 mmol/L (2-11) 09/10/17 05:29 BUN 13 mg/dL (6-24) 09/10/17 05:29 Creatinine 0.68 mg/dL (0.67-1.17) 09/10/17 05:29 Est GFR ( Amer) 170.7 (>60) 09/10/17 05:29 Est GFR (Non-Af Amer) 132.7 (>60) 09/10/17 05:29 BUN/Creatinine Ratio 19.1 (8-20) 09/10/17 05:29 Glucose 93 mg/dL (70-100) 09/10/17 05:29 Calcium 9.0 mg/dL (8.6-10.3) 09/10/17 05:29 C-Reactive Protein 10.42 mg/L (< 5.00) H 09/10/17 05:29 Vancomycin Trough 12.3 mcg/mL 09/11/17 14:03 Assessment: []s/p I&D and wound vac placement RLE Plan: abx per ID NWB RLE
[2017-09-13] MEDS: hydrOXYzine HCL TAB* 50 MG PO PRN (17:39)
[2017-09-14] MEDS: Piperacillin/Tazobac ADVAN(*) 3.375 GM in NS 0.9% 100 ML* 100 ML IVPB SCH ×3 (03:37→12:11)
[2017-09-14 03:47] LABS: ABS Basophils 0.1 10^3/ul (0-0.2); ABS Eosinophils 0.2 10^3/ul (0-0.6); ABS Lymphocytes 2.4 10^3/ul (1.0-4.8); ABS Monocytes 0.5 10^3/ul (0-0.8); ABS Neutrophils 1.8 10^3/ul (1.5-7.7); ABS Nucleated RBC 0 10^3/ul; Hematocrit 34 % (42-52); Hemoglobin 11.5 g/dl (14.0-18.0); Lymphocyte % 48.7 % (25-47); Mean Corpuscular HGB Conc 34 g/dl (31-36); Mean Corpuscular Hemoglobin 28 pg (27-31); Mean Corpuscular Volume 85 fL (80-94); Mean Platelet Volume 7 um3 (7.4-10.4); Nucleated Red Blood Cells % 0.1; Platelet Count 492 10^3/ul (150-450); Red Blood Count 4.05 10^6/ul (4.0-5.4); Red Cell Distribution Width 15 % (10.5-15); White Blood Count 4.9 10^3/ul (3.5-10.8)
[2017-09-14 04:00] LABS: EGFR Non-African American 144.9 (>60)
[2017-09-14] MEDS: Nicotine Inhaler* 10 MG AMP INH PRN ×3 (07:40→20:24)
[2017-09-14] MEDS: hydrOXYzine HCL TAB* 50 MG PO PRN (07:40)
[2017-09-14] MEDS: Hydrocortisone 1% CREAM* 1.5 GM PAK TOPICAL SCH ×4 (08:34→20:27)
[2017-09-14] MEDS: Moisturizing CREAM* 120 GM JAR TOPICAL SCH ×2 (08:34→20:27)
[2017-09-14] MEDS: Heparin VIAL(*) 5000 UNITS/ML VIAL (FIVE THOUSAND) SUBCUT SCH ×2 (08:45→20:26)
[2017-09-14] MEDS: Buprenorphine/Naloxone 8-2 MG SL TAB* 1 TAB PO SCH (08:45)
--- NOTE | 2017-09-14 12:58 | PN ---
Subjective Date of Service: 09/14/17 Interval History: Patient seen and examined at bedside. He is very agitated and frustrated and states, "I can't stay here forever. I have a family. I want to get up. I have things to do." Patient was appropriate and respectful in conveying his frustration. We discussed having him meet with orthopedic surgery as opposed to leaving AMA; I expressed my concern that he would likely worsen his prognosis on the wound if he left AMA. He is in agreement to wait and talk with orthopedic surgery about option to go home and follow up as outpatient. Denies any other complaint. Family History: Unchanged from Admission Social History: Unchanged from Admission Past Medical History: Unchanged from Admission Objective Active Medications: Acetaminophen (Tylenol Tab*) 650 mg PO Q4H PRN PRN Reason: FEVER/PAIN Last Admin: 09/13/17 19:32 Dose: 650 mg Buprenorphine/Naloxone (Suboxone 8-2 Mg Sl Tab*) 1 tab.sl PO DAILY [facility] Last Admin: 09/14/17 08:45 Dose: 1 tab.sl Diphenhydramine HCl (Benadryl Iv*) 50 mg IV Q6H PRN PRN Reason: PRURITIS Heparin Sodium (Porcine) (Heparin Flush Picc/Ml/Cvc(*)) 1 - 3 ml FLUSH 0600, 1800 [facility] PRN Reason: Protocol Last Admin: 09/14/17 08:45 Dose: 1 ml Heparin Sodium (Porcine) (Heparin Vial(*)) 5,000 units SUBCUT Q12HR [facility] Last Admin: 09/14/17 08:45 Dose: 5,000 units Hydrocortisone (Hydrocortisone 1% Cream*) 1 applic TOPICAL QID [facility] Last Admin: 09/14/17 12:14 Dose: Not Given Hydroxyzine HCl (Atarax Tab*) 50 mg PO Q6H PRN PRN Reason: Anxiety/Itching Last Admin: 09/14/17 07:40 Dose: 50 mg Piperacillin Sod/Tazobactam (Sod 3.375 gm/ Sodium Chloride) 100 mls @ 25 mls/ hr IVPB 0300,1100,1900 [facility] Last Admin: 09/14/17 12:11 Dose: 25 mls/hr Multi-Ingredient Ointment (Hydrocerin*) 1 applic TOPICAL BID [facility] Last Admin: 09/14/17 08:34 Dose: Not Given Nicotine (Nicotine Inhaler*) 10 mg INH Q2H PRN PRN Reason: CRAVINGS Last Admin: 09/14/17 07:40 Dose: 10 mg Pharmacy Consult (Zosyn Per Pharmacy*) 1 note FOLLOW UP .ZOSYN PER PHARMACY [facility] Vital Signs - 8 hr 09/14/17 09/14/17 09/14/17 07:26 08:00 08:45 Temperature 97.5 F Pulse Rate 55 Respiratory 16 16 16 Rate Blood Pressure 107/50 (mmHg) O2 Sat by Pulse 98 98 Oximetry 09/14/17 09/14/17 10:36 11:35 Temperature 98.9 F Pulse Rate 74 Respiratory 16 16 Rate Blood Pressure 111/41 (mmHg) O2 Sat by Pulse 97 Oximetry Oxygen Devices in Use Now: None Appearance: Young male, lying in bed, NAD Eyes: No Scleral Icterus Ears/Nose/Mouth/Throat: Clear Oropharnyx, Mucous Membranes Moist Neck: NL Appearance and Movements; NL JVP Respiratory: Symmetrical Chest Expansion and Respiratory Effort, Clear to Auscultation Cardiovascular: NL Sounds; No Murmurs; No JVD, RRR Neurological: Alert and Oriented x 3, NL Muscle Strength and Tone Lines/Tubes/Other Access: Clean, Dry and Intact Peripheral IV Nutrition: Taking PO's Result Diagrams: 09/14/17 03:35 09/14/17 03:35 Microbiology and Other Data: Microbiology 09/10/17 12:19 Skin and Soft Tissue MRSA/MSSA (PCR - Final Wound - Right Leg Mrsa Negative S.aureus Negative 09/10/17 12:19 Wound Gram Stain - Final Tissue - Right Leg Skin and Soft Tissue MRSA/MSSA (PCR - Final Mrsa Negative S.aureus Negative 09/10/17 12:19 Gram Stain - Final Leg Right Assess/Plan/Problems-Billing Mr. Nixon is a 37 yo male with PMH significant for IV drug use who initially presented to [facility] with a soft tissue infection and associated necrosis to the right LE and is now status post I+D and wound vac placement. - Patient Problems (1) Wound of right lower extremity Code(s): S81.801A - UNSPECIFIED OPEN WOUND, RIGHT LOWER LEG, INITIAL ENCOUNTER Comment: The patient is s/p I&D R ankle wound; wound vac exchange on 09/12/17 Continue wound vac; patient will likely need more wash-outs of the wound Continue Zosyn; per wound microbiology, could consider Augmentin for outpatient Recommend outpatient f/u with ID ? need for skin graft once the infection clears. (2) IV drug abuse Code(s): F19.10 - OTHER PSYCHOACTIVE SUBSTANCE ABUSE, UNCOMPLICATED Comment: Social work consult (3) DVT prophylaxis Code(s): [id number] - Comment: SQ heparin, as pt not walking much with wound vac in place (4) Full code status Code(s): Z78.9 - OTHER SPECIFIED HEALTH STATUS Status and Disposition: Inpatient admission. Patient to meet with ortho surgery to determine POC.
--- NOTE | 2017-09-14 14:15 | PN ---
Progress Note - Progress Note Date of Service: 09/14/17 SOAP: Subjective: [] Patient seen at bedside for wound vac change. He feels well without fever or chills, he desires discharge Objective: []General: Well appearing NAD RLE: Wound vac changed, painful but tolerated well. Wound base with pink granulation tissue and no purulence. No surrounding erythema. Vital Signs Temp 98.9 F 09/14/17 11:35 Pulse 74 09/14/17 11:35 Resp 16 09/14/17 11:35 BP 111/41 09/14/17 11:35 Pulse Ox 97 09/14/17 11:35 Intake & Output 09/13/17 09/14/17 09/14/17 18:59 06:59 18:59 Intake Total 670 1080 304 Output Total 1075 1475 400 Balance -405 -395 -96 Intake: IV Fluids 110 104 ABX - ZOSYN 110 104 Oral 560 1080 200 Output: Urine 1075 1475 400 Laboratory Last Values WBC 4.9 10^3/ul (3.5-10.8) 09/14/17 03:35 RBC 4.05 10^6/ul (4.0-5.4) 09/14/17 03:35 Hgb 11.5 g/dl (14.0-18.0) L 09/14/17 03:35 Hct 34 % (42-52) L 09/14/17 03:35 MCV 85 fL (80-94) 09/14/17 03:35 MCH 28 pg (27-31) 09/14/17 03:35 MCHC 34 g/dl (31-36) 09/14/17 03:35 RDW 15 % (10.5-15) 09/14/17 03:35 Plt Count 492 10^3/ul (150-450) H 09/14/17 03:35 MPV 7 um3 (7.4-10.4) L 09/14/17 03:35 Neut % (Auto) 35.5 % (38-83) L 09/14/17 03:35 Lymph % (Auto) 48.7 % (25-47) H 09/14/17 03:35 [place] % (Auto) 9.5 % (1-9) H 09/14/17 03:35 Eos % (Auto) 5.0 % (0-6) 09/14/17 03:35 Baso % (Auto) 1.3 % (0-2) 09/14/17 03:35 Absolute Neuts (auto) 1.8 10^3/ul (1.5-7.7) 09/14/17 03:35 Absolute Lymphs (auto) 2.4 10^3/ul (1.0-4.8) 09/14/17 03:35 Absolute Monos (auto) 0.5 10^3/ul (0-0.8) 09/14/17 03:35 Absolute Eos (auto) 0.2 10^3/ul (0-0.6) 09/14/17 03:35 Absolute Basos (auto) 0.1 10^3/ul (0-0.2) 09/14/17 03:35 Absolute Nucleated RBC 0 10^3/ul 09/14/17 03:35 Neutrophils % 60 % (38-83) 09/10/17 05:29 Lymphocytes % 23 % (25-47) L 09/10/17 05:29 Reactive Lymphs % 1 % (0-6) 09/10/17 05:29 Monocytes % 13 % (0-13) 09/10/17 05:29 Eosinophils % 2 % (0-6) 09/10/17 05:29 Basophils % 1 % (0-2) 09/10/17 05:29 Nucleated RBC % 0.1 09/14/17 03:35 Normal RBC Morphology Normal (Normal) 09/10/17 05:29 Sodium 137 mmol/L (133-145) 09/14/17 03:35 Potassium 4.2 mmol/L (3.5-5.0) 09/14/17 03:35 Chloride 104 mmol/L (101-111) 09/14/17 03:35 Carbon Dioxide 28 mmol/L (22-32) 09/14/17 03:35 Anion Gap 5 mmol/L (2-11) 09/14/17 03:35 BUN 14 mg/dL (6-24) 09/14/17 03:35 Creatinine 0.63 mg/dL (0.67-1.17) L 09/14/17 03:35 Est GFR ( Amer) 186.4 (>60) 09/14/17 03:35 Est GFR (Non-Af Amer) 144.9 (>60) 09/14/17 03:35 BUN/Creatinine Ratio 22.2 (8-20) H 09/14/17 03:35 Glucose 94 mg/dL (70-100) 09/14/17 03:35 Calcium 8.5 mg/dL (8.6-10.3) L 09/14/17 03:35 C-Reactive Protein 10.42 mg/L (< 5.00) H 09/10/17 05:29 Vancomycin Trough 12.3 mcg/mL 09/11/17 14:03 Assessment: []s/p I&D and wound vac placement RLE Plan: []Ready for DC home once antibiotic plan and home wound vac have been established. Follow up Monday in office with Dr Martin for vac change Skin graft of next week with Dr Martin
[2017-09-14] MEDS: Acetaminophen TAB* 325 MG PO PRN ×2 (14:34→20:25)
[2017-09-14] MEDS: Amoxicillin/Clavulanate TAB* 875 MG PO SCH (20:25)
[2017-09-15] MEDS: Amoxicillin/Clavulanate TAB* 875 MG PO SCH ×2 (08:46→20:34)
[2017-09-15] MEDS: Heparin VIAL(*) 5000 UNITS/ML VIAL (FIVE THOUSAND) SUBCUT SCH ×2 (08:46→20:35)
[2017-09-15] MEDS: Buprenorphine/Naloxone 8-2 MG SL TAB* 1 TAB PO SCH (08:46)
[2017-09-15] MEDS: Hydrocortisone 1% CREAM* 1.5 GM PAK TOPICAL SCH ×4 (08:47→20:29)
[2017-09-15] MEDS: Moisturizing CREAM* 120 GM JAR TOPICAL SCH ×2 (08:47→20:29)
--- NOTE | 2017-09-15 11:19 | PN ---
Subjective Date of Service: 09/15/17 Interval History: Patient seen and examined at bedside. Denies fever/chills, CP, SOB. No significant pain to right ankle except when wound vac is disconnected. No other acute concerns other than eagerness to be discharged to home. Family History: Unchanged from Admission Social History: Unchanged from Admission Past Medical History: Unchanged from Admission Objective Active Medications: Acetaminophen (Tylenol Tab*) 650 mg PO Q4H PRN PRN Reason: FEVER/PAIN Last Admin: 09/14/17 20:25 Dose: 650 mg Amoxicillin/Clavulanate Potassium (Augmentin Tab*) 875 mg PO BID [facility] Last Admin: 09/15/17 08:46 Dose: 875 mg Buprenorphine/Naloxone (Suboxone 8-2 Mg Sl Tab*) 1 tab.sl PO DAILY [facility] Last Admin: 09/15/17 08:46 Dose: 1 tab.sl Diphenhydramine HCl (Benadryl Iv*) 50 mg IV Q6H PRN PRN Reason: PRURITIS Heparin Sodium (Porcine) (Heparin Flush Picc/Ml/Cvc(*)) 1 - 3 ml FLUSH 0600, 1800 [facility] PRN Reason: Protocol Last Admin: 09/15/17 05:46 Dose: 1 ml Heparin Sodium (Porcine) (Heparin Vial(*)) 5,000 units SUBCUT Q12HR [facility] Last Admin: 09/15/17 08:46 Dose: 5,000 units Hydrocortisone (Hydrocortisone 1% Cream*) 1 applic TOPICAL QID [facility] Last Admin: 09/15/17 08:47 Dose: Not Given Hydroxyzine HCl (Atarax Tab*) 50 mg PO Q6H PRN PRN Reason: Anxiety/Itching Last Admin: 09/14/17 07:40 Dose: 50 mg Multi-Ingredient Ointment (Hydrocerin*) 1 applic TOPICAL BID [facility] Last Admin: 09/15/17 08:47 Dose: Not Given Nicotine (Nicotine Inhaler*) 10 mg INH Q2H PRN PRN Reason: CRAVINGS Last Admin: 09/14/17 20:24 Dose: 10 mg Vital Signs - 8 hr 09/15/17 09/15/17 09/15/17 08:00 08:02 08:46 Temperature 98.0 F Pulse Rate 69 Respiratory 18 16 18 Rate Blood Pressure 119/71 (mmHg) O2 Sat by Pulse 98 98 Oximetry Oxygen Devices in Use Now: None Appearance: Young male, ambulating with walker, NAD Eyes: No Scleral Icterus Ears/Nose/Mouth/Throat: Mucous Membranes Moist Neck: NL Appearance and Movements; NL JVP Respiratory: Symmetrical Chest Expansion and Respiratory Effort, Clear to Auscultation Cardiovascular: NL Sounds; No Murmurs; No JVD, RRR Neurological: Alert and Oriented x 3 Lines/Tubes/Other Access: Clean, Dry and Intact Peripheral IV Nutrition: Taking PO's Result Diagrams: 09/14/17 03:35 09/14/17 03:35 Microbiology and Other Data: Microbiology 09/10/17 12:19 Skin and Soft Tissue MRSA/MSSA (PCR - Final Wound - Right Leg Mrsa Negative S.aureus Negative 09/10/17 12:19 Wound Gram Stain - Final Tissue - Right Leg Skin and Soft Tissue MRSA/MSSA (PCR - Final Mrsa Negative S.aureus Negative 09/10/17 12:19 Gram Stain - Final Leg Right Assess/Plan/Problems-Billing Mr. Nixon is a 37 yo male with PMH significant for IV drug use who initially presented to [facility] with a soft tissue infection and associated necrosis to the right LE and is now status post I+D and wound vac placement. - Patient Problems (1) Wound of right lower extremity Code(s): S81.801A - UNSPECIFIED OPEN WOUND, RIGHT LOWER LEG, INITIAL ENCOUNTER Comment: The patient is s/p I&D R ankle wound; wound vac exchange on 09/12/17 Plan to discharge patient home with wound vac and outpatient ortho follow-up if insurance approval for vac Continue Augmentin, will need outpatient ID follow-up. Recommend outpatient f/u with ID Plan for flap procedure next week. (2) IV drug abuse Code(s): F19.10 - OTHER PSYCHOACTIVE SUBSTANCE ABUSE, UNCOMPLICATED Comment: Social work consult (3) DVT prophylaxis Code(s): OSE2654 - Comment: SQ heparin, as pt not walking much with wound vac in place (4) Full code status Code(s): Z78.9 - OTHER SPECIFIED HEALTH STATUS Status and Disposition: Inpatient admission. Anticipate d/c to home once wound vac approved.
--- NOTE | 2017-09-15 11:21 | PN ---
Progress Note - Progress Note Date of Service: 09/15/17 SOAP: Subjective: POD #3 Right ankle I&D with vac placement. Pt states that he is doing ok, anxious for d/c home. Denies significant pain, CP/SOB Objective: Vitals: Temp Pulse Resp BP Pulse Ox 98.0 F 69 18 119/71 98 09/15/17 08:02 09/15/17 08:02 09/15/17 08:46 09/15/17 08:02 09/15/17 08:02 Gen: A&O x3, NAD at rest RLE: Dressing C/D/I, +f/e at MTPs, sensation intact, brisk cap refill Assessment: POD #3 Right ankle I&D Plan: Initial plan was to send pt home with VAC, change dressing / in office however pt does not currently have insurance coverage and cannot obtain home VAC. If this does not get resolved, will keep pt in hospital for continued wound VAC with skin grafting procedure 09/18. Pt will need continued VAC for 5 days post skin grafting as well. Pt understanding and working on insurance issue. If able, pt can be d/c'd with home VAC later today
[2017-09-15] MEDS: Nicotine Inhaler* 10 MG AMP INH PRN ×3 (11:35→18:09)
[2017-09-15] MEDS: hydrOXYzine HCL TAB* 50 MG PO PRN (12:59)
[2017-09-16] MEDS: Moisturizing CREAM* 120 GM JAR TOPICAL SCH (09:43)
[2017-09-16] MEDS: Buprenorphine/Naloxone 8-2 MG SL TAB* 1 TAB PO SCH (09:43)
[2017-09-16] MEDS: Hydrocortisone 1% CREAM* 1.5 GM PAK TOPICAL SCH ×2 (09:43→12:47)
[2017-09-16] MEDS: Heparin VIAL(*) 5000 UNITS/ML VIAL (FIVE THOUSAND) SUBCUT SCH (09:44)
[2017-09-16] MEDS: Amoxicillin/Clavulanate TAB* 875 MG PO SCH (09:44)
[2017-09-16] MEDS: Nicotine Inhaler* 10 MG AMP INH PRN ×2 (09:44→15:15)
[2017-09-16 15:48] VITALS: BP 124/77
--- NOTE | 2017-09-17 00:51 | DS ---
CC: Dr. Myers; Dr. Martin, Orthopedic Surgery; Dr. Pedraza; Dr. Wheeler * DISCHARGE SUMMARY: DATE OF ADMISSION: 09/09/17 DATE OF DISCHARGE: 09/16/17 PRIMARY CARE PROVIDER: None. DISCHARGE DIAGNOSES: 1. Right ankle area leg abscess in a patient who is IV drug user and used the vein in the area for injecting IV drugs, status post I and D by Dr. Martin and placement of VAC dressing by Dr. Myers. The patient is being discharged with a VAC dressing in place to follow up with Orthopedic Surgery. 2. IV drug use. The patient was treated with Suboxone during his hospital stay. He is going to get a prescription for 4 days' worth of methadone at discharge. He is planning to set himself up with a Suboxone prescriber in [facility]. MEDICATIONS AT DISCHARGE: 1. Augmentin 875 mg p.o. b.i.d. 2. Methadone 10 mg every 6 hours p.r.n. The patient was prescribed a total of 16 tablets. I-STOP was checked. He was prescribed methadone on 10/27/16 for a total of 13-day supply. CONSULTATIONS DURING THE HOSPITAL STAY: Included Orthopedic Surgery involving Dr. Pedraza, Dr. Martin, and Dr. Myers. SURGERIES PERFORMED: Included on 09/10/17, irrigation and debridement of the left posterior medial leg wound with preparation for subsequent wound VAC placement, performed by Dr. Pedraza. DIAGNOSTIC STUDIES/LAB DATA: On 09/14/17, white blood cell count of 4.9, hemoglobin 11.5, hematocrit of 34, and platelets of 492. Sodium was 137, potassium 4.2, chloride 104, carbon dioxide 28, BUN 14, creatinine 0.6. Cultures were positive for Prevotella melaninogenica and Parvimonas micra as well as Streptococcus constellatus. MRSA was negative. HOSPITALIZATION COURSE: Too Nixno is a 37-year-old IV drug user, presented to the hospital with right ankle abscess after he was attempting to use the vein in his right ankle to inject heroin. He had a rather large abscess that was debrided by Dr. Pedraza in the OR. Post his OR stay, he needed to have a wound VAC applied. His cultures grew positive streptococcus, and as above mentioned, two other bacteria. Those likely are susceptible to Augmentin, which the patient was treated postoperatively with good results. Please note that the patient was noted to have allergy to PENICILLIN, but she had been using Augmentin for the past 2 days without any reaction to it. At discharge, the patient requested a Suboxone prescription with which he was treated for his withdrawal symptoms during his hospital stay. Unfortunately, I am unable to prescribe his Suboxone since I am not authorized. I am going to give him 4 days' worth prescription of methadone. PHYSICAL EXAMINATION AT THE TIME OF DISCHARGE: Blood pressure 116/64, heart rate of 56 and regular, respiratory rate 16, oxygen saturation 99% on room air, temperature 98.2. General: The patient is a very pleasant 37-year-old male who is in no acute distress. Alert and oriented x3. HEENT: Head: Atraumatic , normocephalic. Eyes: Pupils equal and reactive to light and accommodation. Oropharynx clear. Mucosa moist. Neck: Supple. No JVD, no bruits bilaterally. Cardiovascular: Regular rate and rhythm. No murmur. Respiratory : Clear to auscultation bilaterally. Abdomen: Soft, nontender. Bowel sounds are present in all 4 quadrants. Extremities: The right ankle is wrapped in postoperative dressing with wound VAC in place. Pulses are +2 bilaterally. There is no clubbing or cyanosis. At discharge, the patient is recommended to follow up with orthopedic services of [facility] on Monday, which is 09/18/17 for a wound VAC check. The patient is to continue Augmentin until discontinued by his orthopedic service. Please note that this is a short summary of the patient's hospital stay. Please refer to further medical records for details. TIME SPENT: Approximately 40 minutes were spent on the patient's discharge. [id number]/[facility] #: [id number] [facility]
== END 2017-09-16 16:50 | disposition home or self-care (01) | DRG 383 ==
LOC: SSU 19:27 → MED 09-14 13:25
PROVIDERS: ADMIT Hospitalist; ATTEND Internal Medicine
PROC: 05H633Z Insertion of Infusion Device into Left Subclavian Vein, Percutaneous Approach (ICD-10-PCS; 2017-09-10)
PROC: 0JBQ0ZZ Excision of Right Foot Subcutaneous Tissue and Fascia, Open Approach (ICD-10-PCS; principal; 2017-09-10 11:30)
PROC: 3E10X8Z Irrigation of Skin and Mucous Membranes using Irrigating Substance (ICD-10-PCS; 2017-09-12)
DX: L02.415 Cutaneous abscess of right lower limb (principal); I96 Gangrene, not elsewhere classified; Z68.1 Body mass index [BMI] 19.9 or less, adult; B95.4 Other streptococcus as the cause of diseases classified elsewhere; F11.10 Opioid abuse, uncomplicated; F15.10 Other stimulant abuse, uncomplicated; Z88.0 Allergy status to penicillin
CPT/HCPCS: 36415; 71010; 80048; 80202; 85025; 86140; 87070; 87073; 87076; 87077; 87185; 87205; 87640; 87641; 88304; A9270-GY; J1100; J1170; J1644; J1885; J2250; J2405; J2543; J2704; J3010; J3370

== ENCOUNTER → 2017-09-21 12:16 | Day surgery (SDC) | payer MEDICAID ==
[~2017-09-21 12:16] MED LIST: Buffered Lidocaine 0.9% SYRIN* 5 ML/SYR SYRINGE INTRADERM ONE; Buffered Lidocaine 0.9% SYRIN* 5 ML/SYR SYRINGE ONE; Bupivacaine 0.5% SDV PF* 10-30ML VIAL ONE; Clindamycin 900 MG IVPREMIX(* 0 MG/0 ML SDV IV ONE; Dexamethasone IV* 4 MG/ML 1 ML (4 MG) IV SLOW PU ONE; Dexamethasone IV* 4 MG/ML 1 ML (4 MG) ONE; Famotidine IV* 10 MG/ML 2 ML (20 mg) IV ONE; Famotidine IV* 10 MG/ML 2 ML (20 mg) ONE; Lidocaine 1% INJ* 10 MG/ML 30 ML SDV ONE; Lidocaine 1% MPF wEPI 200,000* 30 ML SDV ONE; Midazolam* 1 MG/ML 10 ML VIAL (10 MG) ONE; Mineral Oil Sterile, TOPICAL* 25 ML BTL ONE; fentaNYL* 50 MCG/ML 5 ML VIAL (250 MCG VIAL) ONE
[2017-09-21 13:19] VITALS: BP 123/68
== END | disposition home or self-care (01) ==
LOC: OR 12:16
PROVIDERS: ATTEND Orthopaedic Surgery
DX: S91.001D Unspecified open wound, right ankle, subsequent encounter (principal); Z53.8 Procedure and treatment not carried out for other reasons
CPT/HCPCS: A9270-GY; J1100; J2001; J2250; J3010